=== PATIENT | female | born 1965 | race Caucasian/White ===

== ENCOUNTER → 2017-08-09 12:38 | Outpatient (CLI) | payer OTHER | END | disposition home or self-care (01) | LOC: D.CT 12:38 | DX: R10.9 Unspecified abdominal pain (principal); R11.0 Nausea ==

== ENCOUNTER 2017-10-05 08:55 | Day surgery (SDC) | payer OTHER ==
[2017-10-04 09:48] LABS: HEMATOCRIT 39.9 % (36.0-48.0); HEMOGLOBIN 13.6 g/dL (12-16); MCH 30.2 pg (26.0-34.0); MCHC 34.1 g/dL (31.0-37.0); MCV 88.5 fL (80.0-100.0); MEAN PLATELET VOLUME 9.5 fL (7.4-10.4); RBC 4.51 10x6/uL (4.00-5.40); RDW 13.2 % (11.5-14.5); WBC 6.1 10x3/uL (4.8-10.8)
--- NOTE | ~2017-10-05 | OP ---
PATIENT NAME: ERIKA FIGUEROA MEDICAL RECORD: [id number] :61 LOCATION:[facility] ADMISSION DATE: SURGEON: JAX STEPHENS MD DATE OF OPERATION: 10/05/2017 PREOPERATIVE DIAGNOSIS: Symptomatic gallstones. PREOPERATIVE DIAGNOSES: Symptomatic gallstones with hepatomegaly. PROCEDURE: 1. Laparoscopic cholecystectomy. 2. Intraoperative cholangiography without immediate surgeon interpretation. 3. An 18-gauge core needle liver biopsies. SURGEON: Jax Stephens MD STATE FIRE MARSHAL: None. BLOOD LOSS: Minimal. ANESTHESIA: General. COMPLICATIONS: None. The risks, possible complications, and alternatives to the procedure were explained to the patient. She elected to proceed. OPERATIVE COURSE: The patient was conveyed to the operating room electively on 10/05/2017. General anesthesia was induced by the anesthesia staff. The abdomen was sterilely prepped and draped. A small skin montana was accomplished in the left upper quadrant. A Veress needle was inserted through the skin montana into the peritoneal cavity. CO2 insufflation was begun. Once a sufficient pneumoperitoneum had been achieved, a 5-mm trocar was inserted through an incision in the right upper quadrant. Under direct internal vision utilizing a television camera, a 12-mm trocar was inserted through an incision at the umbilicus. Two more trocars were inserted. A 5-mm trocar was inserted in the epigastrium. Another 5-mm trocar was inserted far laterally in the right upper quadrant. During insertion of the Veress needle and all trocars, there appeared to have been no injury to the bowels, any intraperitoneal or retroperitoneal structures. The indication for the liver biopsy was hepatomegaly. Under laparoscopic guidance, I percutaneously accessed the right upper quadrant utilizing an 18-gauge core needle liver biopsy device. Cores were obtained over the convexity of the liver. The biopsy sites were made hemostatic with electrocautery. I then advanced the cholangiogram trocar. I punctured the fundus of the gallbladder. I aspirated bile. I then injected dye. Static fluoroscopic images were obtained. These cholangiographic images are sent to the radiologist for interpretation. I withdrew the cholangiogram trocar. The gallbladder was grasped and retracted cephalad. The infundibulum was grasped and retracted laterally. Critical view of the triangle of Calot was visualized. Blunt dissection was begun on the triangle of Calot. One cystic artery and one cystic duct were identified. These were clipped multiply and divided between clips. OPERATIVE REPORT [id number] ERIKA FIGUEROA The gallbladder was then excised from its bed and the liver. It was placed within an Endobag retrieval device and was withdrawn through the umbilical fascia defect. The 12-mm trocars were placed and the abdomen reinsufflated. I irrigated and aspirated in the right upper quadrant. There was no bleeding even at low pressure of 8. The Emmett-Julee suture closure device and 0 Vicryl sutures were used to close the umbilical fascia. All the trocars were removed and the abdomen desufflated. The incision at the umbilicus was closed with interrupted 4-0 Vicryl Rapide sutures. The other skin incisions were closed with interrupted intracuticular 3-0 Vicryls. Benzoin and Steri-Strips were applied. The patient was then extubated and conveyed to post-anesthesia care unit where she was in stable condition. TRANSINT:[id number] Voice Confirmation ID: [id number] DOCUMENT ID: [id number] JAX STEPHENS MD at 1607 CC: MAKENNA BEARD and SANDRA PIERSON MD [id number] DICTATION DATE: 10/05/17 1156 [employer] FINISHER: 10/05/17 1231 [facility] 10/05/17 [id number] [place] [address]
[~2017-10-05 08:55] MED LIST: HYDROCO/APAP TAB 10-; LEVO-T112 MCG PO; OMEPRAZOLE40 MG PO; VALIUM10 MG
[2017-10-05 09:24] VITALS: BP 135/79; BMI 43.5
== END 2017-10-05 14:24 | disposition home or self-care (01) ==
LOC: D.OPS 08:55 → D.PAN 11:00 → D.OPS 11:30
PROVIDERS: Anesthesiology
DX: K80.80 Other cholelithiasis without obstruction (principal); R16.0 Hepatomegaly, not elsewhere classified; F17.200 Nicotine dependence, unspecified, uncomplicated; K21.9 Gastro-esophageal reflux disease without esophagitis; Z01.812 Encounter for preprocedural laboratory examination